=== PATIENT | male | born 1990 | race African-American/Black ===

== ENCOUNTER 2021-09-06 02:04 | Emergency (ER) | payer OTHER ==
[~2021-09-06] VITALS: Ht 180.3 cm; Wt 127.3 kg
[2021-09-06] MEDS ORDERED: HYDROCODONE/ACETAMINOPHEN 5-325 MG TABLET PO ONE (04:45)
[2021-09-06 05:32] VITALS: BP 129/88
== END 2021-09-06 05:40 ==
LOC: EMS 02:09
DX: S93.402A Sprain of unspecified ligament of left ankle, initial encounter (principal); X50.1XXA Overexertion from prolonged static or awkward postures, initial encounter; Y93.89 Activity, other specified; Y92.89 Other specified places as the place of occurrence of the external cause; Y99.8 Other external cause status
CPT/HCPCS: 99283